=== PATIENT | female | born 1995 | race Caucasian/White ===

== ENCOUNTER 2016-12-07 19:40 | Emergency (ER) | payer BC ==
--- NOTE | ~2016-12-07 | CT2 ---
[facility] A Service of [facility] RADIOLOGY TEXT RESULTS PATIENT: JULIENNE JACINTO LOCATION: SED : [birth year] UNIT #: [id number] AGE: [address]: PARAS TYSON SEX: F ORDER DR: [id number] [address] [id number] MR#: [id number] #: [id number] NAME: JULIENNE JACINTO : 1995 SEX: F STUDY DATE/TIME: 12/07/2016 UNIT: SED ROOM: STUDY DESCRIPTION: CT Abd and Pelv W Cont Attending Physician: Paras Tyson Ordering Physician: Paras Tyson MEDICAL IMAGING REPORT This report is preliminary unless electronic signature is present. EXAM CT abdomen and pelvis 12/07 22:42 INDICATIONS Pain and burning with urination for 2 days. Right lower quadrant abdominal pain as well. TECHNIQUE Axial images were obtained through the abdomen and pelvis following IV contrast administration. Multiplanar reformats were obtained. No comparison. The CT exam was performed with one or more of the following radiation dose reduction techniques: automatic exposure control, adjustment of mA and/or kV according to patient size, and iterative reconstruction. FINDINGS Abdomen: The lung bases are clear. Gallbladder is normal. There is no biliary obstruction. There is mild splenomegaly with a craniocaudal emab-xm-kyhd length of 13.5 cm. Solid organs, including both kidneys, are otherwise normal. No free fluid or adenopathy. Unopacified GI tract is normal. Pelvis: Urinary bladder is normal. Solid pelvic organs are normal. The unopacified GI tract, including the appendix is normal. There is trace free fluid in the cul-de-sac, likely physiologic. IMPRESSION 1. Normal GI tract including the appendix. 2. Normal nonobstructed kidneys. 3. Trace free fluid in the cul-de-sac, likely physiologic. [facility] A Service of [facility] RADIOLOGY TEXT RESULTS PATIENT: JULIENNE JACINTO LOCATION: SED : 95 UNIT #: [id number] AGE: [address]: PARAS TYSON SEX: F ORDER DR: 4. Very mild splenomegaly. Dictated by... Marquise Garcia Jr., M.D. THIS IS AN ELECTRONICALLY VERIFIED REPORT Marquise Garcia Jr., M.D. at 12/08/2016 9:23 PM JOIE/raghavendra TD: 12/08/2016 08:37 JOB #: [id number] MEDICAL IMAGING REPORT Page 1 of 1
[2016-12-07] MEDS ORDERED: NO MEDICATIONS (19:55)
[2016-12-07 20:04] LABS: URINE SOURCE CLEAN CATCH
[2016-12-07 20:07] LABS: URINE APPEARANCE HAZY; URINE BILIRUBIN NEG (NEG); URINE BLOOD NEG (NEG); URINE COLOR YELLOW; URINE GLUCOSE NEG (NORM); URINE KETONE NEG (NEG); URINE LEUKOCYTE ESTERASE NEG (NEG); URINE NITRATE NEG (NEG); URINE PROTEIN 1+ (NEG); URINE SPECIFIC GRAVITY >=1.030 (1.003-1.035)
[2016-12-07 20:13] LABS: MICRO INDICATED? YES
[2016-12-07 20:14] LABS: CULTURE INDICATED? NO; URINE BACTERIA NEG (NEG); URINE CRYSTALS CALCIUM OXALATE /[HPF]; URINE MUCUS PRESENT; URINE RBC 0-2 /[HPF] (0-2); URINE SQUAMOUS EPITHELIAL CELL OCCAS /[HPF]
[2016-12-07 22:16] LABS: BASOPHIL# 0.1 X10e3 (0-0.3); BASOPHIL% 0.9 % (0-2.5); EOSINOPHIL# 0.1 X10e3 (0-0.7); HEMATOCRIT 37.7 % (35.0-45.0); LYMPHOCYTE# 3.5 X10e3 (1.0-3.5); MEAN CELL VOLUME 91.2 FL (83-96); MEAN CORPUSCULAR HEMOGLOBIN 31.4 PG (28-34); MEAN CORPUSCULAR HGB CONC 34.4 g/dL (30-36); MEAN PLATELET VOLUME 7.9 FL (6.5-11.5); MONOCYTE# 0.7 X10e3 (0-1.0); MONOCYTE% 9.7 % (3.0-12.0); NEUTROPHIL# 2.7 X10e3 (1.5-7.1); NEUTROPHIL% 38.4 % (40-75); PLATELET COUNT 271 X10e3 (140-420); RED BLOOD COUNT 4.13 X10e (3.90-5.30); RED CELL DISTRIBUTION WIDTH 12.1 % (11.0-15.5); WHITE BLOOD COUNT 7.1 X10e3 (4.0-10.5)
[2016-12-07 22:17] LABS: DIFF IND NO
[2016-12-07 22:37] LABS: ALBUMIN SERUM 4.1 g/dL (3.5-5.0); ALT (SGPT) 13 U/L (10-40); AMYLASE 25 U/L (0-46); AST (SGOT) 18 U/L (10-42); BILIRUBIN,TOTAL 0.4 mg/dL (0.2-2.0); BUN/CREATININE RATIO 14.28; CALCIUM SERUM 9.1 mg/dL (8.4-10.2); CREATININE SERUM 0.7 mg/dL (0.6-1.4); GLOM FILT RATE Estimated 123.9 mL/min (>60); LIPASE 24 U/L (22-51); POTASSIUM 3.6 mmol/L (3.5-5.1); PROTEIN TOTAL SERUM 7.6 g/dL (6.0-8.3)
[2016-12-10 23:41] LABS: CHLAMYDIA TRACH Not Detected (Not Detected); N GONOR Not Detected (Not Detected)
== END 2016-12-08 00:39 | disposition home or self-care (01) ==
LOC: SED 19:40
PROVIDERS: Nurse Practitioner
DX: N73.9 Female pelvic inflammatory disease, unspecified (principal); F17.210 Nicotine dependence, cigarettes, uncomplicated; Z86.19 Personal history of other infectious and parasitic diseases; Z88.0 Allergy status to penicillin
CPT/HCPCS: 36415; 74177; 80053; 81003; 82150; 83690; 84450; 84460; 84703; 85025; 87491; 87591; 87808; 87905; 96374; 96375; 99284; J0696; J1885; J2405; J2765; Q9967